=== PATIENT | male | born 1965 ===

== ENCOUNTER 2022-06-28 09:52 | Inpatient (IN) | payer OTHER ==
[2022-06-28 10:37] VITALS: BMI 22.6
[2022-06-28] MEDS ORDERED: BISMUTH SUBSALICYLATE 262 MG/15 ML BTL PO PRN (11:09)
[2022-06-28] MEDS ORDERED: P-EPHED 60MG/TRIPROLIDI 2.5MG TABLET PO PRN (11:09)
[2022-06-28] MEDS ORDERED: MAG HYDROX/AL HYDROX/SIMETH 30 ML UNIT-DOSE CUP PO PRN (11:09)
[2022-06-28] MEDS ORDERED: POLYETHYLENE GLYCOL (HEALTHYLAX) 3350 17 GM PACKET PO PRN (11:09)
[2022-06-28] MEDS ORDERED: hydrOXYzine PAMOATE 25 MG CAPSULE (FP) PO PRN (11:09)
[2022-06-28] MEDS ORDERED: MELATONIN 5 MG TABLETS PO PRN (11:09)
[2022-06-28] MEDS ORDERED: ACETAMINOPHEN 325 MG TABLET (FP) PO PRN (11:09)
[2022-06-28] MEDS ORDERED: BENZOCAINE/MENTHOL (CHLORASEPTIC ) LOZENGE MM PRN (11:09)
[2022-06-28] MEDS ORDERED: LOPERAMIDE HCL 2 MG CAPSULE PO PRN (11:09)
[2022-06-28] MEDS ORDERED: ONDANSETRON *ODT* 4 MG TABLET SL PRN (11:09)
[2022-06-28] MEDS ORDERED: IBUPROFEN 600 MG TABLET (FP) PO PRN (11:09)
[2022-06-28] MEDS ORDERED: guaiFENesin 600 MG TABLET.ER (FP) PO PRN (11:09)
[2022-06-28] MEDS ORDERED: IBUPROFEN 400 MG TABLET (FP) PO PRN (11:09)
[2022-06-28] MEDS ORDERED: MAGNESIUM HYDROX 2400MG/30ML ORAL SUSPENSION 30 ML CUP PO PRN (11:09)
[2022-06-28] MEDS ORDERED: NICOTINE POLACRILEX 2 MG GUM BUC PRN (11:09)
[2022-06-28] MEDS ORDERED: BENZONATATE 200 MG CAPSULE PO PRN (11:09)
[2022-06-28] MEDS ORDERED: DICYCLOMINE HCL 10 MG CAPSULE PO PRN (11:09)
[2022-06-28] MEDS ORDERED: METOPROLOL TARTRATE 25 MG TABLET (FP) PO ONE (11:13)
[2022-06-28] MEDS ORDERED: METOPROLOL TARTRATE 25 MG TABLET (FP) ONE (11:54)
[2022-06-28] MEDS ORDERED: NICOTINE 7 MG/24 HOURS TOPICAL PATCH TD ONE (11:54)
[2022-06-28] MEDS: NICOTINE 14 MG/24 HOURS TOPICAL PATCH TD SCH (12:03)
[2022-06-28 12:59] VITALS: RESP 18
[2022-06-28] MEDS: PANTOPRAZOLE 20 MG TABLET PO SCH (13:14)
[2022-06-28] MEDS: ASPIRIN COATED 81 MG TABLET.EC PO SCH (13:14)
[2022-06-28] MEDS ORDERED: THIAMINE HCL 100 MG TABLET (FP) PO SCH (22:00)
[2022-06-29 06:23] VITALS: PULSE 95
[2022-06-29 09:14] VITALS: BP 135/86; TEMP 97.1
[2022-06-29] MEDS ORDERED: PRENATAL VITAMINS W/ FOLIC ACID TABLET (FP) PO SCH (10:00)
[2022-06-29] MEDS: PANTOPRAZOLE 20 MG TABLET PO SCH (11:10)
[2022-06-29] MEDS: ASPIRIN COATED 81 MG TABLET.EC PO SCH (11:10)
[2022-06-29] MEDS: NICOTINE 14 MG/24 HOURS TOPICAL PATCH TD SCH (11:11)
== END 2022-06-29 11:55 | disposition home or self-care (01) | DRG 897 ==
LOC: YASAS 09:52 → Y3N 12:29
PROVIDERS: ADMIT Allergy & Immunology; ATTEND Surgery
PROC: HZ2ZZZZ Detoxification Services for Substance Abuse Treatment (ICD-10-PCS; principal; 2022-06-28)
DX: F10.230 Alcohol dependence with withdrawal, uncomplicated (principal); F17.210 Nicotine dependence, cigarettes, uncomplicated; I25.10 Atherosclerotic heart disease of native coronary artery without angina pectoris; Z95.1 Presence of aortocoronary bypass graft; K21.9 Gastro-esophageal reflux disease without esophagitis
CPT/HCPCS: 87811; C9803-CS; U0003; U0005

== ENCOUNTER 2022-08-28 12:45 | Inpatient (IN) | payer OTHER ==
[2022-08-28 13:34] VITALS: BMI 22.1
[2022-08-28] MEDS ORDERED: IBUPROFEN 600 MG TABLET (FP) PO PRN (15:54)
[2022-08-28] MEDS ORDERED: hydrOXYzine PAMOATE 25 MG CAPSULE (FP) PO PRN (15:54)
[2022-08-28] MEDS ORDERED: IBUPROFEN 400 MG TABLET (FP) PO PRN (15:54)
[2022-08-28] MEDS ORDERED: DICYCLOMINE HCL 10 MG CAPSULE PO PRN (15:54)
[2022-08-28] MEDS ORDERED: NICOTINE POLACRILEX 2 MG GUM BUC PRN (15:54)
[2022-08-28] MEDS ORDERED: MAGNESIUM HYDROX 2400MG/30ML ORAL SUSPENSION 30 ML CUP PO PRN (15:54)
[2022-08-28] MEDS ORDERED: NICOTINE 7 MG/24 HOURS TOPICAL PATCH TD PRN (15:54)
[2022-08-28] MEDS ORDERED: POLYETHYLENE GLYCOL (HEALTHYLAX) 3350 17 GM PACKET PO PRN (15:54)
[2022-08-28] MEDS ORDERED: METHOCARBAMOL 500 MG TABLET PO PRN (15:54)
[2022-08-28] MEDS ORDERED: BENZONATATE 200 MG CAPSULE PO PRN (15:54)
[2022-08-28] MEDS ORDERED: ACETAMINOPHEN 325 MG TABLET (FP) PO PRN (15:54)
[2022-08-28] MEDS ORDERED: guaiFENesin 600 MG TABLET.ER (FP) PO PRN (15:54)
[2022-08-28] MEDS ORDERED: NICOTINE 10 MG CARTRIDGE (INHALER) IH PRN (15:54)
[2022-08-28] MEDS ORDERED: BISMUTH SUBSALICYLATE 524 MG/30 ML PO PRN (15:54)
[2022-08-28] MEDS ORDERED: MAG HYDROX/AL HYDROX/SIMETH 30 ML UNIT-DOSE CUP PO PRN (15:54)
[2022-08-28] MEDS ORDERED: BENZOCAINE/MENTHOL (CHLORASEPTIC ) LOZENGE MM PRN (15:54)
[2022-08-28] MEDS ORDERED: LOPERAMIDE HCL 2 MG CAPSULE PO PRN (15:54)
[2022-08-28] MEDS ORDERED: ONDANSETRON *ODT* 4 MG TABLET SL PRN (15:54)
[2022-08-28] MEDS ORDERED: diazePAM 5 MG TABLET PO PRN (16:05)
[2022-08-28] MEDS: diazePAM 5 MG TABLET PO SCH ×2 (16:42→22:21)
[2022-08-28] MEDS: ASPIRIN COATED 81 MG TABLET.EC PO SCH (17:01)
[2022-08-28] MEDS: THIAMINE HCL 100 MG TABLET (FP) PO SCH (22:21)
[2022-08-28] MEDS: MELATONIN 5 MG TABLETS PO SCH (22:21)
[2022-08-29] MEDS: diazePAM 5 MG TABLET PO SCH ×4 (05:28→22:19)
[2022-08-29] MEDS ORDERED: LANSOPRAZOLE 15 MG PO SCH (10:00)
[2022-08-29] MEDS: ASPIRIN COATED 81 MG TABLET.EC PO SCH (10:32)
[2022-08-29] MEDS: PRENATAL VITAMINS W/ FOLIC ACID TABLET (FP) PO SCH (10:32)
[2022-08-29] MEDS: PANTOPRAZOLE 20 MG TABLET PO SCH (10:33)
[2022-08-29 12:05] LABS: HEMATOCRIT 50.4 % (35.4-49); HEMOGLOBIN 17.3 GM/dL (11.7-16.9); MCH 30.3 pg (25.7-33.7); MCHC 34.4 g/dl (32.0-35.9); MEAN PLT VOLUME 8.9 fl (7.5-11.1); RBC 5.73 M/mm3 (4.00-5.60); RDW 13.6 % (11.9-15.9)
[2022-08-29 12:10] LABS: POTASSIUM 3.8 mmol/L (3.5-5.1)
[2022-08-29 12:14] LABS: ALBUMIN 4.1 g/dl (3.4-5.0); BLOOD UREA NITROGEN 8.9 mg/dL (7-18); CALCIUM 10.4 mg/dL (8.5-10.1)
[2022-08-29 12:15] LABS: CREATININE 0.7 mg/dL (0.55-1.3)
[2022-08-29 12:16] LABS: BILIRUBIN,TOTAL 3.7 mg/dL (0.2-1); TOT PROT 7.2 g/dl (6.4-8.2)
[2022-08-29 12:38] LABS: PLATELET COUNT 171 10^3/uL (134-434)
[2022-08-29] MEDS: MELATONIN 5 MG TABLETS PO SCH (22:19)
[2022-08-29] MEDS: THIAMINE HCL 100 MG TABLET (FP) PO SCH (22:19)
[2022-08-30] MEDS ORDERED: diazePAM 5 MG TABLET PO SCH (06:00)
[2022-08-30 09:00] VITALS: BP 117/71; PULSE 91; RESP 16; TEMP 97.1
[2022-08-30] MEDS: ASPIRIN COATED 81 MG TABLET.EC PO SCH (09:35)
[2022-08-30] MEDS: PRENATAL VITAMINS W/ FOLIC ACID TABLET (FP) PO SCH (09:35)
[2022-08-30] MEDS: PANTOPRAZOLE 20 MG TABLET PO SCH (09:35)
[2022-08-31] MEDS ORDERED: diazePAM 5 MG TABLET PO SCH (06:00)
[2022-09-01] MEDS ORDERED: diazePAM 5 MG TABLET PO ONE (06:00)
== END 2022-08-30 09:55 | disposition left against medical advice (07) | DRG 894 ==
LOC: YASAS 12:45 → Y3N 15:26
PROVIDERS: ADMIT Allergy & Immunology; ATTEND Surgery
PROC: HZ2ZZZZ Detoxification Services for Substance Abuse Treatment (ICD-10-PCS; principal; 2022-08-28)
DX: F10.230 Alcohol dependence with withdrawal, uncomplicated (principal); F17.210 Nicotine dependence, cigarettes, uncomplicated; K21.9 Gastro-esophageal reflux disease without esophagitis; I25.10 Atherosclerotic heart disease of native coronary artery without angina pectoris; Z95.1 Presence of aortocoronary bypass graft; Z95.5 Presence of coronary angioplasty implant and graft
CPT/HCPCS: 36415; 80053; 85027; 86780; 87635; 87811; 93005; 93010

== ENCOUNTER 2023-10-11 14:21 | Inpatient (IN) | payer BC, OTHER ==
[2023-10-11 15:51] VITALS: BMI 24.0
[2023-10-11] MEDS ORDERED: hydrOXYzine PAMOATE 25 MG CAPSULE (FP) PO PRN (16:43)
[2023-10-11] MEDS ORDERED: NALOXONE HCL 0.4 MG/ML VIAL IM PRN (16:43)
[2023-10-11] MEDS ORDERED: IBUPROFEN 400 MG TABLET (FP) PO PRN (16:43)
[2023-10-11] MEDS ORDERED: NALOXONE (NARCAN) HCL 4 MG/0.1 ML SPRAY NS PRN (16:43)
[2023-10-11] MEDS ORDERED: ONDANSETRON *ODT* 4 MG TABLET SL PRN (16:43)
[2023-10-11] MEDS ORDERED: BENZONATATE 200 MG CAPSULE PO PRN (16:43)
[2023-10-11] MEDS ORDERED: DICYCLOMINE HCL 10 MG CAPSULE PO PRN (16:43)
[2023-10-11] MEDS ORDERED: BISMUTH SUBSALICYLATE 524 MG/30 ML PO PRN (16:43)
[2023-10-11] MEDS ORDERED: POLYETHYLENE GLYCOL (HEALTHYLAX) 3350 17 GM PACKET PO PRN (16:43)
[2023-10-11] MEDS ORDERED: MAGNESIUM HYDROX 2400MG/30ML ORAL SUSPENSION 30 ML CUP PO PRN (16:43)
[2023-10-11] MEDS ORDERED: BENZOCAINE/MENTHOL (CHLORASEPTIC ) LOZENGE MM PRN (16:43)
[2023-10-11] MEDS ORDERED: MAG HYDROX/AL HYDROX/SIMETH 30 ML UNIT-DOSE CUP PO PRN (16:43)
[2023-10-11] MEDS ORDERED: LOPERAMIDE HCL 2 MG CAPSULE PO PRN (16:43)
[2023-10-11] MEDS: IBUPROFEN 600 MG TABLET (FP) PO PRN (18:56)
[2023-10-11] MEDS: MELATONIN 5 MG TABLETS PO SCH (22:16)
[2023-10-11] MEDS: METHOCARBAMOL 500 MG TABLET PO PRN (22:16)
[2023-10-11] MEDS: THIAMINE 100 MG TABLET PO SCH (22:16)
[2023-10-11] MEDS: guaiFENesin 600 MG TABLET.ER (FP) PO PRN (22:16)
[2023-10-12] MEDS: PRENATAL VITAMINS W/ FOLIC ACID TABLET (FP) PO SCH (10:20)
[2023-10-12 10:23] LABS: CHLORIDE 99 mmol/L (98-107); POTASSIUM 4.2 mmol/L (3.5-5.1); SODIUM 133 mmol/L (136-145)
[2023-10-12 10:26] LABS: HEMATOCRIT 46.9 % (35.4-49); HEMOGLOBIN 16.5 GM/dL (11.7-16.9); MCH 31.1 pg (25.7-33.7); MCHC 35.1 g/dl (32.0-35.9); MEAN CELL VOLUME 88.6 fl (80-96); MEAN PLT VOLUME 8.5 fl (7.5-11.1); PLATELET COUNT 240 10^3/uL (134-434); RDW 13.2 % (11.9-15.9); WHITE BLOOD COUNT 6.3 K/mm3 (4.0-10.0)
[2023-10-12 10:30] LABS: ALBUMIN 4.3 g/dl (3.4-5.0); CALCIUM 9.5 mg/dL (8.5-10.1)
[2023-10-12 10:31] LABS: ANION GAP 14 mmol/L (4-13); CO2 19 mmol/L (21-32); GLUCOSE,RANDOM 128 mg/dL (74-106)
[2023-10-12 10:33] LABS: CREATININE 0.7 mg/dL (0.55-1.3); SGOT/AST 35 U/L (15-37); SGPT/ALT 53 U/L (13-61)
[2023-10-12 10:35] LABS: BILIRUBIN,TOTAL 2.7 mg/dL (0.2-1); TOT PROT 8.1 g/dl (6.4-8.2)
[2023-10-12 10:37] LABS: ALK PHOS 81 U/L (45-117)
[2023-10-12] MEDS ORDERED: chlordiazePOXIDE HCL 25 MG CAPSULE PO PRN (15:18)
[2023-10-12] MEDS: metoPROLOL SUCCINATE 25 MG TAB.SR.24H (FP) PO SCH (15:36)
[2023-10-12] MEDS: FAMOTIDINE 20 MG TABLET PO SCH (15:36)
[2023-10-12] MEDS ORDERED: FAMOTIDINE 20 MG TABLET PO SCH (16:00)
[2023-10-12] MEDS: NALTREXONE HCL 50 MG TABLET PO SCH (16:57)
[2023-10-12] MEDS: chlordiazePOXIDE HCL 25 MG CAPSULE PO SCH (16:59)
[2023-10-13] MEDS: chlordiazePOXIDE HCL 25 MG CAPSULE PO SCH (05:26)
[2023-10-13] MEDS: ACETAMINOPHEN 325 MG TABLET (FP) PO PRN (08:05)
[2023-10-13] MEDS: ASPIRIN COATED 81 MG TABLET.EC PO SCH (10:22)
[2023-10-14] MEDS: chlordiazePOXIDE HCL 10 MG CAPSULE PO SCH (05:54)
[2023-10-14 09:25] VITALS: BP 125/83; PULSE 90; RESP 18; TEMP 97.3
[2023-10-15] MEDS ORDERED: chlordiazePOXIDE HCL 10 MG CAPSULE PO SCH (05:00)
[2023-10-16] MEDS ORDERED: chlordiazePOXIDE HCL 10 MG CAPSULE PO ONE (05:00)
== END 2023-10-14 10:55 | disposition home or self-care (01) | DRG 951 ==
LOC: YASAS 14:21 → Y6N 16:45
PROVIDERS: ADMIT Allergy & Immunology; ATTEND Surgery
PROC: HZ2ZZZZ Detoxification Services for Substance Abuse Treatment (ICD-10-PCS; principal; 2023-10-11)
DX: F17.210 Nicotine dependence, cigarettes, uncomplicated (principal); F41.9 Anxiety disorder, unspecified; I10 Essential (primary) hypertension; I25.10 Atherosclerotic heart disease of native coronary artery without angina pectoris; K21.9 Gastro-esophageal reflux disease without esophagitis; E80.6 Other disorders of bilirubin metabolism; Z95.1 Presence of aortocoronary bypass graft
CPT/HCPCS: 36415; 80053; 80305; 80307; 85027; 86780; 93005; 93010